=== PATIENT | female | born 1965 | race Caucasian/White ===

== ENCOUNTER 2022-06-10 16:00 | Outpatient (RCR) | payer BC, OTHER, SELFPAY | END 2022-09-12 11:03 | disposition home or self-care (01) | PROVIDERS: PCP Family Medicine; Visit Provider Orthopaedic Surgery Foot and Ankle Surgery | DX: M25.572 Pain in left ankle and joints of left foot (principal); Z51.89 Encounter for other specified aftercare | CPT/HCPCS: 97110; 97140 ==

== ENCOUNTER 2023-02-05 14:51 | Outpatient (CLI) | payer BC, OTHER, SELFPAY ==
--- NOTE | 2023-02-05 15:00 | CRLHL7_ITS ---
For Patients: As a result of the Century Cures Act, medical imaging exams and procedure reports are released immediately into your electronic medical record. You may view this report before your referring provider. If you have questions, please contact your health care provider. BILATERAL SCREENING MAMMOGRAM WITH COMPUTER-AIDED DETECTION AND TOMOSYNTHESIS TECHNIQUE: CC and MLO views were obtained. These mammographic images have been obtained using full-field digital technique. These mammographic images were interpreted with the benefit of computer-aided detection. Breast Tomosynthesis was used in this interpretation. COMPARISON FILM: 02/10/20, 03/15/19, 08/21/17. FINDINGS: The breasts are heterogeneously dense, which may obscure small masses IMPRESSION: There is no radiographic evidence for malignancy. ASSESSMENT: BI-RADS Category 2: Benign RECOMMENDATION: Routine screening mammogram in 1 year. A lay language report of this examination will be provided to the patient. Wilber Aponte M.D. Diagnostic/Nuclear Medicine Radiologist [email or web address] JENNIFER/Dictated by: Wilber Aponte MD @ 02/06/2023 9:13:00 AM (Electronically Signed)
== END 2023-02-05 14:52 | disposition home or self-care (01) ==
LOC: MAMMO 14:52
PROVIDERS: PCP Family Medicine; Visit Provider Family Medicine
DX: Z12.31 Encounter for screening mammogram for malignant neoplasm of breast (principal); R92.2 Inconclusive mammogram
CPT/HCPCS: 77063; 77067

== ENCOUNTER 2023-04-16 08:03 | Outpatient (CLI) | payer BC, OTHER, SELFPAY | END 2023-04-16 08:04 | disposition home or self-care (01) | LOC: NFLDREF 04-17 09:55 | PROVIDERS: PCP Family Medicine; Referring Provider Family Medicine; Visit Provider Family Medicine | DX: R73.01 Impaired fasting glucose (principal); E78.5 Hyperlipidemia, unspecified | CPT/HCPCS: 80061 ==

== ENCOUNTER 2023-09-02 06:43 | Day surgery (SDC) | payer BC, OTHER, SELFPAY ==
[2023-09-02] VITALS (7 sets, daily range): BP systolic 114–139; BP diastolic 71–86; PULSE 65–73; RESP 16–18; TEMP 36.6–36.8; O2SAT 95–100; BMI 31.1
--- OUTSIDE RECORDS SUMMARY | 2023-09-02 06:46 | XMS_ITS | Data Portability ---
Author Name Unknown Address [address] [place] [address] Phone [phone] Organization [place] [facility], [facility] Address [address] [place] [address] Care Team Providers Care Student Nurse Name Role Phone ANDRE CHARLES Referring Provider [facility] Physical Therapis t Assessment Encounter Date Assessment Date Assessment LastModified by Organization Details LastModified Time 02/24/2022 02/24/2022 Today I spent a considerable amount of time discussing the patient's past medical and personal history, as well as performing a physical examination all of which is documented in its entirety in the electronic health record. I reviewed the pathophysiology of the disorder, potential contributing and risk factors as well as treatment options to address their complaints. Today panoramic imaging was obtained from her orthodongist. In this radiograph the mandibular condyles were partially visualized and appear relatively normal in morphology. I've not recommended advanced imaging at this time. From a treatment perspective I've recommended rehabilitative treatment approach. Treatment begins with home self management designed to rest the muscles of mastication and reduce inflammation in the temporomandibular joints. This includes heat and ice compresses, eating a soft food or pain-free diet, bilateral chewing, identifying and decreasing daytime muscle tension and modification of their sleep position. I explained and demonstrated in great detail self management of TMD. Beyond self management I do believe that they would benefit from a maxillary intraoral appliance to help stabilize the musculoskeletal structures of the jaw. In addition I've recommended rehabilitation with physical therapy. The goal of treatment is to improve pain, function and focus on long-term self-management strategies. I do believe that by following these treatment recommendations there is a good prognosis for reduction of symptoms. History today was obtained from the patient. The patient has 5+ diagnoses they would like to address. Their symptoms are chronic. This case is moderate complexity because of multiple diagnoses with chronic symptoms. Data reviewed included: previous imaging. Risk of complications including disease progression were discussed. Today time spent may have included a review of past records, history taking, review of diagnoses, contributing factors, treatment plan, diagnostic testing, prognosis, expectations, risks and complications of treatment/no treatment, discussions with other providers and completing documentation was 65 minutes. I've suggested that the patient return for follow-up care in 2-4 weeks. Not available 02/24/2022 14:26:01 03/05/2022 03/05/2022 Patient was seen today for follow-up and insertion of a maxillary stabilization intraoral appliance. Diagnosis and contributing factors were reviewed. Questions were answered. Self-management and home exercise techniques were reviewed. Today the intraoral appliance was fit to patient comfort. Specifically, adjustments were made to balance appliance occlusion. Instructions on proper use and care were discussed/reviewed both written and verbally. I suggested that the patient uses the appliance as a retraining tool to aid in relaxing their jaw muscles - put it in 20-30 minutes before bed time, keeping their jaw in a relaxed balanced position, simultaneously applying a heat compress on the jaw. Potential side effects were reviewed. The patient was advised to discontinue oral appliance use should they experience untoward side effects or be unable to return for follow-up care. The patient was advised to return in 3-4 weeks to reassess their progress and continue their treatment plan as previously outlined. In addition to oral appliance insertion today we review home self-care strategies as previously discussed. We discussed additional treatment options including rehabilitative treatment with physical therapy. History today was obtained from the patient. The patient has 5+ diagnoses they would like to address. Their symptoms are unchanged. This case is moderate complexity because of multiple diagnoses with chronic symptoms. Risk of complications including disease progression were discussed. Today time spent may have included a review of past records, history taking, review of diagnoses, contributing factors, treatment plan, diagnostic testing, prognosis, expectations, risks and complications of treatment/no treatment, discussions with other providers and completing documentation was 25 minutes. I've suggested that the patient return for follow-up care in 4-8 weeks. Not available 03/05/2022 18:01:32 Plan of Treatment Reminders Order Date Submit Date Provider Last Modified By Organization Details Last Modified Time Details Appointments None recorded. Lab None recorded. Referral physical therapist referral - Please call patient for appointmen t. Thank you! 2021 022 [facility], [address], [place], [address], 14:35:09 Procedures None recorded. Surgeries None recorded. Imaging None recorded. Medication Orders None recorded. Patient TargetsNo targets recorded. Patient Instructions Encounter Date Encounter Id Patient Instructions Last Modified By Organization Details Last Modified Time 02/24/2022 [id number] oral appliance preparation* Not available 02/24/2022 14:28:14 Self Care for TMD Not availabl e 02/24/2022 14:28:14 Reason for Referral Physical Therapist Referral for Myofascial pain masticatory/cervical myofascial pain, bilateral tmj popping Please call patient for appointment. Thank you! Referring Physician: Abbie Forman, Pain Management, Encounter Date: 02/24/2022 Results Created Date Observation Date Name Description Value Unit Range Abnormal Flag LastModifiedBy Organization Detail LastModifiedTime 02/25/20 22 02/24/2022 oral appli ance prepa ratio n* Type of appliance maxill julio stabil izatio n applia nce Not Available [place] [address] [facility] [address], [place], [address], 02/24/2022 14:25:51 02/25/20 22 XR, ortho panto gram No observ ation record ed. Not Available 02/24/2022 12:31:42 Result Notes None recorded. 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 Procedures Surgical History Date Name Laterality Status Provider Name and Address Organization Details Recorded Time 2 Oral appliance completed Shashanigel Alarcon [facility] 03/05/2022 17:35:49 7 Unlisted px accessory sinus completed Shasha Dorian [facility] 02/24/2022 11:48:05 Imaging Results Imaging Date Name Status LastModified by Organization Details LastModified Time 02/24/2022 XR, orthopantogram completed Inform ation not available 02/24/2022 12:31:42 Procedure Notes None recorded. Medical Equipment None Reported. Allergies Allergen ID Allergen Name Allergen Category Reaction Reaction Severity Criticality Documentation Date Start Date Code Code System Note Provider Name and Address Organization Details Recorded Time [address] penicilli n V potassium medicatio n Not available Not available Not available 02/24/2022 5 RxNorm Shasha Alarcon [facility] 2 11:42:54 Medications Name Sig Start Date Stop Date Status Note LastModified by Organization Details LastModified Time fluoxetine 40 mg capsule TAKE 1 CAPSULE BY MOUTH EVERY DAY active Not Available Not Available No t Available acetaminophe n 500 mg tablet active Not Available Not Available Not Available ondansetron 8 mg disintegrati ng tablet 02/24 completed Not Available Not Available Not Available ketorolac 10 mg tablet 02/24 completed Not Available Not Available Not Available omeprazole 20 mg capsule,deep yed release TAKE 1 CAPSULE BY MOUTH EVERY DAY active Not Available Not Available No t Available oxycodone 5 mg tablet 02/24 completed Not Available Not Available Not Available cyclobenzapr ine 5 mg tablet 02/24 completed Not Available Not Available Not Available Vitals Date Recorded Body temperature Body height Heart rate Systolic blood pressure Diastolic blood pressure Provider Name and Address Organization Details Last Updated DateTime 02/24/2022 97.1 [degF] 172.72 cm 62 /min 158 mm[Hg] 97 mm[Hg] Shasha castillo [facility] 11:42:18 Date Recorded Body mass index (BMI) Body weight Provider Name and Address Organization Details Last Updated DateTime 02/24/2022 31.9 kg/m2 22922.4 g Abbie castillo [facility] 02/24/2022 12:07:56 Date Recorded Body height Body temperature Provider N [place] and Address Organization Details Last Updated DateTime 03/05/2022 172.72 cm 97.3 [degF] Shasha castillo [facility] 03/05/2022 17:34:36 Social History Question Answer Notes LastModified by [employer] ion Details LastModified Time Are You Currently Employed? Yes Information not available 02/24/2022 What Type Of Diet Are You Following? 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 Information not available 02/24/2022 Sex: Female Functional Status None recorded. Mental Status None recorded. Family History Nothing Reported. Medical History Condition Response Allergies/Hayfever Y Back pain Y Anxiety Disorder Y Acid Reflux (GERD) Y Arthritis Y Depression Y High Cholesterol Y Gynecological HistoryNo gynecological history recorded. Obstetrics History GPAL:G 0 P 0 0 0 0 Immunizations Vaccine Type Date Status Provider Name and Address Organization Details Recorded Time SARS-COV-2 (COVID-19) vaccine, UNSPECIFIED 09/26/2020 completed Shasha castillo [facility] 02/24/2022 11:45:52 Past Encounters Encounter ID Performer Location Encounter Start Date Encounter Closed Date Diagnosis/Indication [id number] Abbie Forman [place] [address] [facility],[address] [place] [address] 02/24/2022 11:14:03 02/24/2022 14:32:51 Bilateral referred otalgia of ears Arthralgia of temporomandibular joint Bilateral temporomandibular joint articular disc disorder Myofascial pain [id number] Abbie Forman [place] [address] [facility],[address] [place] [address] 03/05/2022 17:32:17 03/05/2022 17:35:55 Myofascial pain Bilateral referred otalgia of ears Bilateral temporomandibular joint articular disc disorder Health Concerns Section Related Observation LastModified by Organization Detai ls LastModified Time None Recorded Concern Status LastModified by Organization Details LastModified Time None Recorded Advance Directives Directive None Recorded Payers Encounter Date Sequence Insurance Name Policy Number Policy Arreola Covered Member ID Arreola Member ID Guarantor Name 03/05/2022 1 [facility] [id number] Beryl Soria [id number] Beryl Soria 03/05/2022 2 [facility] [id number] Hank H Estella [id number] Beryl Estella 02/24/2022 1 [facility] [id number] Beryl Soria [id number] Beryl Estella 02/24/2022 2 [facility] [id number] Hank H Estella [id number] Beryl Soria Notes Date Note Type Note Provider Name and Address Organization Details Recorded Time 02/24/2022 text/html HPI Notes: gener al HPI for jaw, face, TMD pain Reported by patient. Onset: started 25 year(s) ago; 1985 Location: bilateral; masseteric; preauricular; ear Quality: dull; aching; sore Severity: moderate Duration constant Symptom triggers: clenching; stress; chews hard/crunchy/chewy foods Aggravating Factors: yawning; wide mouth opening Alleviating Factors: NSAIDs; acetaminophen; splint therapy Associated Symptoms: jaw popping bilateral; jaw locks closed bilateral; headaches; tinnitus Prior Tests: panorex Patient presents today for evaluation of a possible temporomandibular disorder. These symptoms are chronic and began with no clear triggering events. Previous consultation include evaluation with her dentist. Symptoms are bilateral and aggravated by clenching and grinding of their teeth. The patient is aware of teeth clenching and grinding. Beryl is a pleasant 56 y.o. female presenting with a long history of TMD. Beryl states that she grew up in [place] and has been inquiring about treatment for jaw pain for many years, but she was not offered any treatment. She was thrilled when she moved to [place] and was told that there is TMD treatment available. Beryl reports bilateral jaw pain, tmj popping, ear pain, and neck pain. Ten years ago her jaw used to lock, but this does not happen with any frequency at this point. Beryl states that she experiences rare headaches but attributes them to stress or sinus headaches. She consulted with an concrete placement equipment operator but was told that she should have TMD treatment before considering orthodontics. Beryl is getting her masters in elementary education in 2 weeks, so she has been under a lot of stress. 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 Abbie Forman [facility] 02/24/2022 14:28:19 03/05/2022 text/html HPI Notes: gener al HPI for jaw, face, TMD pain Reported by patient. Onset: started 25 year(s) ago; 1985 Location: bilateral; masseteric; preauricular; ear Quality: dull; aching; sore Severity: moderate Duration constant Symptom triggers: clenching; stress; chews hard/crunchy/chewy foods Aggravating Factors: yawning; wide mouth opening Alleviating Factors: NSAIDs; acetaminophen; splint therapy Associated Symptoms: jaw popping bilateral; jaw locks closed bilateral; headaches; tinnitus Prior Tests: panorex Patient presents today for insertion of a maxillary stabilization oral appliance. They note no changes in symptoms which along with prior data was reviewed, updated and documented in the patient history of present illness. (S)he describes compliance with home self care as previously recommended. 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 female presenting with a long history of TMD. Beryl states that she grew up in [place] and has been inquiring about treatment for jaw pain for many years, but she was not offered any treatment. She was thrilled when she moved to [place] and was told that there is TMD treatment available. Beryl reports bilateral jaw pain, tmj popping, ear pain, and neck pain. Ten years ago her jaw used to lock, but this does not happen with any frequency at this point. Beryl states that she experiences rare headaches but attributes them to stress or sinus headaches. She consulted with an concrete placement equipment operator but was told that she should have TMD treatment before considering orthodontics. Beryl is getting her masters in elementary education in 2 weeks, so she has been under a lot of stress. 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 SARAI Llanos - [facility] 03/05/2022 18:02:10 OBGyn Episode No OBEpisode recorded.
--- OUTSIDE RECORDS SUMMARY | 2023-09-02 06:46 | XMS_ITS | Clinical Summary ---
Author Name Unknown Organization [facility] Address [place], [place] [address] Care Team Providers Care Commercial Real Estate Broker Name Role Phone Patricia Chery MD Primary Care Provider + Allergies Active Allergy Reactions Criticality Noted Date Comments Latex Hives,Rash Low 12/31/2019 Nickel Rash Low 12/31/2019 Penicillins Diarrhea Low 12/31/2019 Medications Medication Sig Dispensed Refills Start Date End Date Status FLUoxetine (PROZAC) 40 mg capsule Daily 0 10/06/2019 Active omeprazole (PRILOSEC) 20 mg Delayed-Release capsule Daily 0 09/30/2019 Active ondansetron (ZOFRAN ODT) 8 mg disintegrating tabletIndications:Sy ndesmotic ankle sprain, left, subsequent encounter Place 1 Tablet (8 mg) on the tongue every 8 hours if needed for Nausea/Vomiting. 4 Tablet 0 11/12/2021 Active WalkerIndications:Sy ndesmotic ankle sprain, left, subsequent encounter 2 Wheeled Walker for home use. Length of need: 6 weeks 1 Each 0 11/12/2021 Active oxyCODONE (ROXICODONE) 5 mg immediate release tabletIndications:Sy ndesmotic ankle sprain, left, subsequent encounter Take 1-2 Tablets (5-10 mg) by mouth every 4 hours if needed for Pain. 16 Tablet 0 11/12/2021 Active acetaminophen (TYLENOL EXTRA STRGTH) 500 mg tabletIndications:Sy ndesmotic ankle sprain, left, subsequent encounter Take 2 Tablets (1,000 mg) by mouth every 6 hours if needed for Pain. Max acetaminophen dose: 4000mg in 24 hrs. 30 Tablet 0 11/12/2021 Active cyclobenzaprine (FLEXERIL) 5 mg tabletIndications:Sy ndesmotic ankle sprain, left, subsequent encounter Take 1 Tablet (5 mg) by mouth 3 times daily. 20 Tablet 0 11/12/2021 Active miscellaneous medical supply miscIndications:Ankl e syndesmosis disruption, left, subsequent encounter,Ankle instability, left As directed. Please visit [email or web address] Daily and purchase: [employer] Open Toe Stockings - Size Small ([place] Blue Stripe) 1 Each 0 12/26/2021 Active Active Problems No known active problems Family History Relation Name Status Comments Father Mother Social History Tobacco Use Types Packs/Day Years Used Date Smoking Tobacco: Never Smokeless Tobacco: Never Alcohol Use Standard Drinks/Week Comments Yes 0 (1 standard drink = 0.6 oz pur e alcohol) Sex and Gender Information Value Date Recorded Sex Assigned at Not on file Gender Identity Not on file Sexual Orientation Not on file Obstetrics History Last Filed Vital Signs Vital Sign Reading Time Taken Comments Blood Pressure 127/74 11/12/2021 11:11 AM CDT Pulse 73 11/12/2021 11:11 AM CDT Temperature 36.2 ??C (97.2 ??F) 11/12/2021 9:33 AM CD T Respiratory Rate 16 11/12/2021 11:1 1 AM CDT Oxygen Saturation 94% 11/12/2021 11: 11 AM CDT Inhaled Oxygen Concentration - - Weight 97.5 kg (214 lb 15.2 oz) 11/12/2021 6:21 AM CDT Height 172.7 cm (5' 8) 11/12/2021 6:21 AM CDT Body Mass Index 32.68 11/12/2021 6:21 AM CDT Plan of Treatment Health Maintenance Due Date Last Done Comments Tdap 1978 Depression screening for age 12+ 1979 HIV for age 15-65 1982 BMI (ht and wt on same day) for age 18+ 1985 Hepatitis C screening for age 18-79 1985 Tetanus booster 1987 Colonoscopy through age 75 2012 Lipids for age 45-75 2012 Mammogram for age 45-75 2012 Zoster (shingles) series for age 50+ (1 of 2) 2017 COVID-19 vaccine series ( season) 2023 06/10/2021, 09/26/2020, 08/29/2020 Influenza for age 50-64 03/20/2023 Pap test for age 21-65 04/21/2026 , 04/21/2023, 07/24/2016, Additional history exists Pneumococcal series for age 6-64 Aged Out No longer eligible based on patient's age to complete this topic Medical Devices Implanted Type Area Folding Machine Feeder Device Identifier Shelf Expiration Date Model / Serial / Lot Sut Tightrope Xp Syndesmosis Kit Titnm - [id number] Implanted:Qty: 1 on 11/19/2021 by Andrade Ramirez MD at [facility] [employer] 08/19/2026 [id number] / / [id number] Explanted Type Area Folding Machine Feeder Device Identifier Shelf Expiration Date Model / Serial / Lot Wire Kirs .[id number] Smooth 6/Pk 1646-10-000 Depuy/Kulwinder - [id number] Explanted:Qty: 1 on 11/12/2021 by Andrade Ramirez MD at [facility] Left: Ankle [employer]a [employer] 164-10-000 / / Description:Load # [id number] Advance Directives Latest Code Status on File Code Status Date Activated Date Inactivated Comments Full Code 11/12/2021 6:11 AM 11/12/2021 1:50 PM Question Answer Comments Code Status Discussion: Per Existing Order Discussed Care Teams Commercial Real Estate Broker Relationship Specialty Start Date End Date Patricia Chery MD [address] [place] [address] PCP - General Family Practice 08/22/21
--- OUTSIDE RECORDS SUMMARY | 2023-09-02 06:46 | XMS_ITS | Data Portability ---
Author Name Unknown Address [address] [place] [address] Phone [phone] Organization [facility] Address [address] [place] [address] Assessment Encounter Date Assessment Date Assessment LastModified by Organization Details LastModified Time 11/16/2020 11/16/2020 55F with gross hematuria. I had a long discussion with the patient about the possible reasons for hematuria including infection, obstruction, inflammation, trauma, and malignancy. We discussed that the recommended evaluation includes cystoscopy to evaluate the bladder and urethra, urine cytology, and upper tract imaging with contrast. We discussed that in some cases, no known cause of the hematuria can be identified. Associated with pain, could be stone. Also h/o smoking and family h/o bladder cancer. 1) Gross hematuria - cysto today negative - CT urogram - urine cytology - phone visit 1 week to review results misty Not available 11/16/2020 11:14:31 11/27/2020 11/27/2020 55F with gross hematuria. Workup reveals non-obstructing left kidney stones. No suspicious findings. 2mm would likely pass without difficutly. 5mm stone would likely cause symptoms and has ~50% chance of passing. Discussed stone management options including observation, ESWL, ureteroscopy including expected stone clearance rates and risks. Also discussed stone prevention diet. She has been doing intermittent fasting and wondered if this could be a cause of stones. She would like to do observation. - f/u 6 months with KUB, sooner if symptoms 15 min total time [email or web address] Not available 11/27/2020 17:50:16 03/07/2022 03/07/2022 56F with kidney stones. KUB today without evidence of radiolucent stones. Discussed she may still have stones that were noted on CT from last year and that they may not be visible on KUB. Discussed following up in 1 year with repeat imaging versus CT imaging now. She prefers CT now. Briefly reviewed surgical management of stones, Discussed stone management options including observation, ESWL, ureteroscopy including expected stone clearance rates and risks. Also discussed stone prevention diet. She has been doing intermittent fasting and wondered if this could be a cause of stones. - will obtain CT stone protocol - further recs pending CT results [email or web address] Not available 03/07/2022 14:34:56 Plan of Treatment Reminders Order Date Submit Date Provider Last Modified By Organization Details Last Modified Time Details Appointments None recorde d. Lab urinaly sis, dipstic k 2021 022 [facility], [address], [place], [address], 2 12:44:45 urinaly sis, dipstic k 2020 021 [email or web address] Not available 10:47:28 cytolog y, urine 2020 021 [email or web address] Not available 11:26:54 Referral None recorde d. Procedures None recorde d. Surgeries None recorde d. Imaging CT, abdomen + pelvis, w/o contras t 2021 022 [facility] , [address], [place], [address], 2 13:29:02 CT, urogram 2020 021 [email or web address] Not available 11:23:15 Medication Orders None recorde d. Patient TargetsNo targets recorded. Patient Instructions Encounter Date Encounter Id Patient Instructions Last Modified By Organization Details Last Modified Time 11/27/2020 [id number] Following these dietary guidelines may help to prevent kidney stones: 1) Drink enough fluid so you make at least 2 Liters urine per day 2) Low salt diet (1,500 mg max per day) 3) Try to limit animal protein (2-3 servings per day of meat, eggs) 4) Increase fruits and vegetables 5) Add 2-4 oz lemon or bill moore's slough juice every day misty Not available 11/27/2020 17:48:58 Reason for Referral None Reported. Results Created Date Observation Date Name Description Value Unit Range Abnormal Flag LastModifiedBy Organization Detail LastModifiedTime 11/16/2020 urina lysis , dipst ick Color-Status Yellow Not Available [facility] [address], [place], [address], 11/16/2020 10:42:24 11/16/2020 urina lysis , dipst ick Clarity-Stat us Clear Not Available [facility] [address], [place], [address], 11/16/2020 10:42:24 11/16/2020 urina lysis , dipst ick pH-Status 6.5 Not Available [facility] [address], [place], [address], 11/16/2020 10:42:24 11/17/19 21 11/16/2020 cytol ogy, urine apresult AP result s Not Available [facility] [address], [place], [address], 11/19/2020 14:21:22 03/07/20 22 03/07/2022 urina lysis , dipst ick pH-Status 5.5 Not Available [facility] [address], [place], [address], 03/07/2022 12:44:28 11/20/19 21 11/16/2020 CT, urogr am No observ ation record ed. [email or web address] [facility] [address], [place], [address], 11/26/2020 11:59:13 03/07/20 22 03/07/2022 XR, kidne y + urete r + bladd er No observ ation record ed. BARCODE [facility] [address], [place], [address], 03/07/2022 16:52:58 03/07/20 22 03/07/2022 bladd er scan (PROC ) No observ ation record ed. BARCODE Not Available 03/07/2022 16:52:59 03/10/20 22 03/07/2022 XR, kidne y + urete r + bladd er No observ ation record ed. [facility] [address], [place], [address], 03/20/2022 12:47:02 03/18/20 22 03/14/2022 CT, abdom en + pelvi s, w/o contr ast No observ ation record ed. [email or web address] [facility] [address], [place], [address], 03/20/2022 12:46:38 Result Notes None recorded. Problems Name Status Onset Date Resolution Date Notes Provider Name and Address Organization Details Recorded Time Kidney stone Active 1 Lio myles MD, PHD [address] [place] [address], [address], [facility] 11/27/2020 17:49:43 Blood in urine Active 1 Lio myles MD, PHD [address] [place] [address], [address], [facility] 11/27/2020 17:50:45 Problem Notes None recorded. Procedures Surgical History Date Name Laterality Status Provider Name and Address Organization Details Recorded Time 2 Bladder Scan completed Keyanna Hendricks PA-C [address] [place] [address], [phone], [facility] 03/07/2022 13:32:29 1 Cystoscopy- female completed Lio myles MD, PHD [address] [place] [address] [address], [place], [address], [facility] 11/16/2020 11:12:43 2 Caesarean Section completed Angelica Chris jonathan [facility] 11/16/2020 10:41:23 colonoscopy completed Jennifer Velazco jonathan, [facility] 04/08/2021 17:49:59 Imaging Results Imaging Date Name Status LastModified by Organwaleska [email or web address] Details LastModified Time 11/16/2020 CT, urogram completed [email or web address] [facility] [address], [place], [address], 11/26/2020 11:59:13 03/07/2022 XR, kidney + ureter + bladder completed [facility] [address], [place], [address], 03/07/2022 16:52:58 03/07/2022 bladder scan (PROC) completed BARCODE Information not available 03/07/2022 16:52:59 03/07/2022 XR, kidney + ureter + bladder completed [facility] [address], [place], [address], 03/20/2022 12:47:02 03/14/2022 CT, abdomen + pelvis, w/o contrast completed [email or web address] [facility] [address], [place], [address], 03/20/2022 12:46:38 Procedure Notes None recorded. Medical Equipment None Reported. Allergies Allergen ID Allergen Name Allergen Category Reaction Reaction Severity Criticality Documentation Date Start Date Code Code System Note Provider Name and Address Organization Details Recorded Time 955516 Medicinal product containin g penicilli n and acting as antibacte rial agent (product) medicatio n Not available Not available Not available 11/16/2020 39598 05 SNOMED Angelica castillo, [facility] 10:39:07 081115 latex environme nt,medica tion Not available Not available Not available 11/16/2020 88683 91 RxNorm Angelica castillo [facility] 10:39:14 465636 nickel environme nt Not available Not available Not available 11/16/2020 13666 29 RxNorm Angelica castillo, [facility] 10:39:20 Medications Name Sig Start Date Stop Date Status Note LastModified by Organization Details LastModified Time fluoxetine 40 mg capsule TAKE 1 CAPSULE BY MOUTH EVERY DAY active Not Available Not Available No t Available clindamycin HCl 300 mg capsule TAKE 1 CAPSULE BY MOUTH 3 TIMES A DAY 11/16 completed Not Available Not Available Not Available azithromycin 250 mg tablet TAKE 2 TABLETS BY MOUTH TODAY, THEN TAKE 1 TABLET DAILY FOR 4 DAYS 11/16 completed Not Available Not Available Not Available fluconazole 150 mg tablet TAKE ONE TABLET BY MOUTH ONCE 11/16 completed Not Available Not Available Not Available metronidazol e 500 mg tablet TAKE 1 TABLET BY MOUTH THREE TIMES A DAY FOR 7 DAYS , AVIOD ALCOHOL WHILE TAKING 11/16 completed Not Available Not Available Not Available acetaminophe n 500 mg tablet 03/07 completed Not Available Not Available Not Available ondansetron 8 mg disintegrati ng tablet 03/07 completed Not Available Not Available Not Available ketorolac 10 mg tablet 03/07 completed Not Available Not Available Not Available cephalexin 500 mg capsule TAKE 1 CAPSULE BY MOUTH THREE TIMES A DAY FOR 10 DAYS 11/16 completed Not Available Not Available Not Available omeprazole 20 mg capsule,deep yed release TAKE 1 CAPSULE BY MOUTH EVERY DAY active Not Available Not Available No t Available oxycodone 5 mg tablet 03/07 completed Not Available Not Available Not Available cyclobenzapr ine 5 mg tablet 03/07 completed Not Available Not Available Not Available Vitals Date Recorded Body height Body mass index (BMI) Body weight Provider Name and Address Organization Details Last Updated DateTime 03/07/2022 172.72 cm 31.9 kg/m2 46126.4 g Meenamary Jasmeet jonathan [facility] 03/07/2022 12:42:10 Date Recorded Body height Body mass index (BMI) Body weight Provider Name and Address Organization Details Last Updated DateTime 11/16/2020 172.72 cm 30.4 kg/m2 25438.47 g Angelica castillo [facility] 11/16/2020 10:38:57 Date Recorded Body height Body mass index (BMI) Body weight Provider Name and Address Organization Details Last Updated DateTime 11/27/2020 172.72 cm 30.4 kg/m2 27485.47 g [facility] 11/27/2020 17:25:56 Social History Question Answer Notes LastModified by Organizat ion Details LastModified Time Tobacco Smoking Status Former Smoker Angelica castillo [facility] 11/16/2020 10:41:11 What Is Your Level Of Alcohol Consumption? Moderate Information not available 03/07/2022 What Is Your Level Of Caffeine Consumption? 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 16+yearssincel astcigarette Information not available 03/07/2022 What Was The Date Of Your Most Recent Tobacco Screening? 11/27/2020 mgneiting Information not available 11/27/2020 Sex: Female Functional Status None recorded. Mental Status None recorded. Family History Relationship Description Onset Age of this Age Resolved Age Notes Paternal Grandmother Family history of breast cancer Unspecified Relation Family history of breast cancer maternal cousins Father Neoplasm of bladder Father Family history of cardiac disorder Brother Malignant tumor of lung Medical History Condition Response Other N High Blood Pressure N Kidney Stones N Lung Disease N Depression Y GERD/Acid Reflux Y Sexually Transmitted Infection N Diabetes N Bleeding Disorder N Cancer N High Cholesterol Y Heart Disease N Gynecological HistoryNo gynecological history recorded. Obstetrics History GPAL:G 1 P 0 0 0 0 Past Encounters Encounter ID Performer Location Encounter Start Date Encounter Closed Date Diagnosis/Indication [id number] Lio Bro MD, PHD [facility] [address] [place] [address] 11/16/2020 10:03:34 11/19/2020 11:47:13 Blood in urine [id number] Lio Bor MD, PHD [facility] [address] [place] [address] 11/27/2020 17:25:07 11/29/2020 13:27:58 Kidney stone Blood in urine [id number] Keyanna Hendricks PA-C [facility] [address] [place] [address] 03/07/2022 12:17:29 03/10/2022 08:02:20 Kidney stone Health Concerns Section Related Observation LastModified by Organization Detai ls LastModified Time None Recorded Concern Status LastModified by Organization Details LastModified Time None Recorded Advance Directives Directive None Recorded Payers Encounter Date Sequence Insurance Name Policy Number Policy Arreola Covered Member ID Arreola Member ID Guarantor Name 03/07/2022 1 [facility] [id number] Beryl Estella [id number] 001 Beryl Estella 03/07/2022 2 [facility] [id number] Beryl Paula Estella [id number] Beryl Estella 11/27/2020 1 [facility] [id number] Beryl Estella [id number] 001 Beryl Estella 11/27/2020 2 [facility] [id number] Beryl Paula Estella [id number] Beryl Estella 11/16/2020 1 [facility] [id number] Beryl Estella [id number] 001 Beryl Estella 11/16/2020 2 [facility] [id number] Beryl Paula Estella [id number] Beryl Estella Notes Date Note Type Note Provider Name and Address Organization Details Recorded Time 11/16/2020 text/html HPI Notes: 55F w ith gross hematuria. 3 days of gross hematuria (~10/26-10/28), associated with LLQ pain she thinks is from moving furniture. No dysuria, urgency, frequency with the episode. UA with 0-2 RBC, 0-2 WBC. No prior episodes of hematuria. No history of UTIs or kidney stones. Labs: 10/31/20 Hgb 14.4, Cr 0.6, UA with 0-2 RBC and 0-2 WBC Imaging: None PMH: HLD, depression PSH: , D&C, septoplasty Soc: Occ: teacher, [employer] 5th grade Tobacco: former; quit 2000 EtOH: most treats FHx: bladder ca - father lung cancer - brother breast cancer - PGM, maternal cousins x2 Lio Bro MD, PHD [address], [place], [address], [facility] 11/16/2020 17:14:16 11/27/2020 text/html HPI Notes: 55F w ith gross hematuria. Here to f/u on hematuria workup, including review of CT. No further hematuria or left sided abdominal pain since last visit. Cysto done 11/16/20 was negative. Labs: 10/31/20 Hgb 14.4, Cr 0.6, UA with 0-2 RBC and 0-2 WBC 11/16/20: urine cytology: [facility] (reviewed): 11/16/20: CT Urogram: 5mm and 2mm non-obstructing left renal stones, right renal cyst, no hydro, no filling defects, LLL pulm nodule likely inflammatory PMH: HLD, depression PSH: , D&C, septoplasty Soc: Occ: teacher, [employer] 5th grade Tobacco: former; quit 2000 EtOH: most treats FHx: bladder ca - father lung cancer - brother breast cancer - PGM, maternal cousins x2 This visit was conducted by telephone due to the COVID-19 crisis. Prior to conducting our telephone visit, the patient was apprised of the risks, benefits and alternatives to telephone visits including but not limited to poor audio quality, interrupted visits due to technological limitations, delays in medical evaluation and treatment due to deficiencies or failures of equipment, failure of security protocols resulting in a breach of privacy of personal medical information and a lack of access to complete medical records resulting in not fully informed decisions. Also, because of the COVID-19 pandemic, it was not possible for the patient to sign the privacy regulations, HIPAA release and assignment of benefits forms. The patient was given the opportunity to ask questions about these policies and gave verbal acknowledgement and approval of these policies as well as to hold this meeting by telephone. Lastly, the patient agreed to allowing their medication history to be pulled from a national pharmacy database to facilitate and coordinate their care. Lio Bro MD, PHD [address], [place], [address], [facility] 11/27/2020 17:50:57 03/07/2022 text/html HPI Notes: 56F w ith kidney stones. Had stones on CT for work-up of gross hematuria spring. Here for stone follow up and KUB. Has not noticed any stones pass. Has not had any flank or abdominal pain. Denies dysuria, hematuria, fever. UA today negative PVR today 2 cc Cysto done 11/16/20 was negative. Labs: 10/31/20 Hgb 14.4, Cr 0.6, UA with 0-2 RBC and 0-2 WBC 11/16/20: urine cytology: [facility] (reviewed): 11/16/20: CT Urogram: 5mm and 2mm non-obstructing left renal stones, right renal cyst, no hydro, no filling defects, LLL pulm nodule likely inflammatory 03/07/22 KUB: no radiolucent stones present PMH: HLD, depression PSH: , D&C, septoplasty Soc: Occ: teacher, [employer] 5th grade Tobacco: former; quit 2000 EtOH: most treats FHx: bladder ca - father lung cancer - brother breast cancer - PGM, maternal cousins x2 Keyanna Hendricks PA-C [address], [place], [address], [place] [facility] 03/07/2022 14:35:15 OBGyn Episode No OBEpisode recorded.
[2023-09-02] MEDS: BUPIVACAINE 0.5% 30 ML INJECTION (07:00)
[2023-09-02] MEDS: ETHYL CHLORIDE 1 APPLICATION 1 APPLIC TOPICAL (07:14)
--- NOTE | 2023-09-02 07:14 | SUR.PREOP ---
SAME DAY SURGERY LOCAL INJECTION SITE VERIFICATION WAS PERFORMED BY SURGEON/PA AND PATIENT PRIOR TO LOCAL ANESTHETIC BEING INJECTED TO OPERATIVE SITE.
--- NOTE | 2023-09-02 07:45 | PM.ORPRC ---
Procedure Note Date of procedure: 09/02/23 Procedure: PREOPERATIVE DIAGNOSIS: 1. Right ring finger flexor tenosynovitis - trigger finger POSTOPERATIVE DIAGNOSIS: 1. Right ring finger flexor tenosynovitis - trigger finger PROCEDURE: 1. Right ring finger flexor tendon sheath open release (A1 ghada) SURGEON: Floyd Soriano MD. YARD GENERAL CAR SUPERVISOR: Lulú Velásquez PA-C ANESTHESIA: Local anesthetic 4ml via 50:50 mixture of 2 % Lidocaine with epi and 0.5% marcaine plain EBL: 2mL IMPLANTS: None TOURNIQUET: None COMPLICATIONS: None evident INDICATIONS: The patient is a pleasant 58-year-old female who has experienced right ring finger catching/triggering for number of months. It has progressively gotten worse. Given the failure of nonoperative management, and how this affects daily life, surgery was recommended. DESCRIPTION OF PROCEDURE: Following a thorough discussion of risks, benefits, and alternatives consent was obtained and the operative digit(s) was marked. The patient was brought to the operating room and placed supine on the operating table. Local anesthesia induction was undertaken in preop holding. No antibiotics were administered as this was planned to be a local case only. Proper time-out was performed identifying proper patient, site, and procedure. The operative extremity was prepped and draped in the appropriate sterile fashion using ChloraPrep. An incision was made on the palmar surface of the hand overlying the MCP joint region of the appropriate digit(s) respecting the palmar creases being cautious not to cross these perpendicularly. Sharp incision through the skin, and blunt dissection through subcutaneous tissue allowing protection of crossing neurologic structures. The A1 ghada was visualized directly. It was incised sharply with a 15 blade. It was released completely from its distal to proximal extent under direct visualization. The tendon was inspected and found to be mildly striated consistent with some friction. Otherwise, it was intact. The tendon was removed out of the wound, and further inspected. The patient was asked to manually flex and extend the digits and showed no further catching. The catching, which was visualized initially, was no longer evident with reproduction of a manual fist and relaxation. Closure was performed with 4-O nylon in interrupted fashion. Soft dressings were applied, and the patient was transferred to the recovery room in stable condition. PLAN: 1. Encourage elevation of the operative extremity. 2. Range of motion of the fingers and hand/wrist as tolerated. 3. Ibuprofen/acetaminophen and/or oxycodone as needed for pain control. 4. Follow up with PA visit in 12-16 days for wound check and suture removal.
== END 2023-09-02 08:05 | disposition home or self-care (01) ==
PROVIDERS: PCP Family Medicine; Visit Provider Orthopaedic Surgery Sports Medicine
PROC: (CPT 26055; principal; 2023-09-02 07:30)
DX: M65.341 Trigger finger, right ring finger (principal); M65.841 Other synovitis and tenosynovitis, right hand
CPT/HCPCS: 26055; J0665

== ENCOUNTER 2024-07-26 07:47 | Outpatient (CLI) | payer OTHER, SELFPAY | END 2024-07-26 07:48 | disposition home or self-care (01) | LOC: NFLDREF 07-27 01:48 | PROVIDERS: PCP Family Medicine; Referring Provider Family Medicine; Visit Provider Family Medicine | DX: E78.5 Hyperlipidemia, unspecified (principal); R73.01 Impaired fasting glucose | CPT/HCPCS: 80053; 80061 ==

== ENCOUNTER 2024-10-11 13:57 | Outpatient (CLI) | payer OTHER, SELFPAY ==
--- NOTE | 2024-10-11 14:00 | CRLHL7_ITS ---
For Patients: As a result of the Century Cures Act, medical imaging exams and procedure reports are released immediately into your electronic medical record. You may view this report before your referring provider. If you have questions, please contact your health care provider. BILATERAL SCREENING MAMMOGRAM WITH COMPUTER-AIDED DETECTION AND TOMOSYNTHESIS TECHNIQUE: CC and MLO views were obtained. These mammographic images have been obtained using full-field digital technique. These mammographic images were interpreted with the benefit of computer-aided detection. Breast Tomosynthesis was used in this interpretation. COMPARISON FILM: 02/05/23, 02/10/20, 03/15/19. FINDINGS: There are scattered areas of fibroglandular density. IMPRESSION: There is no radiographic evidence for malignancy. ASSESSMENT: BI-RADS Category 1: Negative RECOMMENDATION: Routine screening mammogram in 1 year. A lay language report of this examination will be provided to the patient. Bill Corcoran M.D. Diagnostic Radiologist [email or web address] SP/Dictated by: Bill Corcoran MD @ 10/18/2024 11:04:00 AM (Electronically Signed)
== END 2024-10-11 13:58 | disposition home or self-care (01) ==
LOC: MAMMO 13:58
PROVIDERS: PCP Family Medicine; Visit Provider Family Medicine
DX: Z12.31 Encounter for screening mammogram for malignant neoplasm of breast (principal)
CPT/HCPCS: 77063; 77067

== ENCOUNTER 2025-01-30 08:23 | Outpatient (CLI) | payer OTHER, SELFPAY | END 2025-01-30 08:24 | disposition home or self-care (01) | LOC: NFLDREF 01-31 15:30 | PROVIDERS: PCP Family Medicine; Referring Provider Family Medicine; Visit Provider Family Medicine | DX: E78.5 Hyperlipidemia, unspecified (principal); R03.0 Elevated blood-pressure reading, without diagnosis of hypertension; R73.03 Prediabetes; E66.9 Obesity, unspecified; R74.8 Abnormal levels of other serum enzymes | CPT/HCPCS: 80053; 80061; 84443 ==